=== PATIENT | female | born 1990 | race Caucasian/White ===

== ENCOUNTER 2025-03-27 00:26 | Emergency (ER) | payer OTHER ==
[~2025-03-27] VITALS: Ht 165.1 cm; Wt 96.2 kg
[2025-03-27 00:51] LABS: BILIRUBIN Negative (Negative); BLOOD Negative (Negative); CLARITY Clear (Clear); COLOR Yellow (Yellow); KETONE Negative (Negative); LEUKO ESTERASE Negative (Negative); NITRITE Positive (Negative); PH 5.5 (4.5-8.0); SPECIFIC GRAVITY >= 1.030 (1.001-1.030); UROBILINOGEN 1.0 E.U./dl (0.0-1.0)
[2025-03-27 00:54] LABS: BASO # 0.0 10*3/uL (0.0-0.1); BASO % 0.2 % (0.0-1.0); EOS # 0.2 10*3/uL (0.0-0.4); EOS % 2.1 % (1.0-4.0); MEAN CELL VOLUME 94.3 fl (81.0-99.0); MEAN CORPUSCULAR HGB 31.0 pg (27.0-31.0); MEAN PLATELET VOLUME 10.0 fl (9.6-12.3); MONO # 0.7 10*3/uL (0.1-1.0); MONO % 7.2 % (3.0-9.0); NEUT # 6.6 10*3/uL (2.3-7.9); NEUT % 69.6 % (47.0-73.0); NUCLEATED RED BLOOD CELL 0.0 % (0.0-0.0); NUCLEATED RED BLOOD CELL 0.0 10*3/uL (0.0-0.0); PLATELET COUNT AUTOMATED 220 10*3/uL (130-400); RED CELL DISTRI WIDTH 13.3 % (0-14.5)
[2025-03-27 00:55] LABS: URINE AMPHETAMINES Negative (1000ng/ml); URINE BARBITURATES Negative (200ng/ml); URINE BENZODIAZEPINES Negative (200ng/ml); URINE CANNABINOIDS (THC) Negative (50ng/ml); URINE COCAINE Negative (300ng/ml); URINE METHADONE Negative (300ng/ml); URINE OPIATES Negative (300ng/ml); URINE PHENCYCLIDINE Negative (25ng/ml)
[2025-03-27 01:38] LABS: BACTERIA 3+; CALCIUM OXALATE CRYSTALS Trace; EPITHELIAL CELLS 16-20
[2025-03-27 02:02] LABS: BUN 8 mg/dl (9-23); CPK 66 U/L (34-171); SGPT/ALT 11 U/L (5-49)
[2025-03-27 02:05] LABS: ACT PARTIAL THROMBO TIME 25.9 SECONDS (20.0-32.1)
[2025-03-27 02:15] LABS: ETHYL ALCOHOL < 3.0 mg/dl (<3)
[2025-03-27] MEDS ORDERED: POTASSIUM CHLORIDE 20 MEQ TAB PO ONE (07:00)
[2025-03-27] MEDS ORDERED: Amoxicillin/Clavulanate Pota 875 MG TAB PO ONE (07:00)
== END 2025-03-27 11:29 | disposition home or self-care (01) ==
LOC: ED 00:26
PROVIDERS: Internal Medicine
DX: O99.352 Diseases of the nervous system complicating pregnancy, second trimester (principal); F43.20 Adjustment disorder, unspecified; Z88.5 Allergy status to narcotic agent; Z88.8 Allergy status to other drugs, medicaments and biological substances; Z79.899 Other long term (current) drug therapy; Z3A.26 26 weeks gestation of pregnancy